=== PATIENT | male | born 1965 | race African-American/Black ===

== ENCOUNTER 2016-12-24 09:10 | Emergency (ER) | payer OTHER ==
[~2016-12-24] VITALS: Ht 180.3 cm; Wt 105.0 kg
[2016-12-24] MEDS ORDERED: ASPI81 PO (09:24)
[2016-12-24] MEDS ORDERED: AMLO2.5T PO (09:24)
[2016-12-24] MEDS ORDERED: LISI-660 PO (09:24)
[2016-12-24] MEDS ORDERED: ACETAMINOPHEN 500 MG TABLET PO ONE (12:30)
[2016-12-24] MEDS ORDERED: IBUPROFEN 800 MG TABLET PO ONE (12:30)
[2016-12-24 12:37] VITALS: BP 138/81
== END 2016-12-24 12:39 | disposition home or self-care (01) ==
LOC: EMS 09:14
DX: M54.32 Sciatica, left side (principal); I10 Essential (primary) hypertension; F10.10 Alcohol abuse, uncomplicated; Z79.82 Long term (current) use of aspirin; Z79.4 Long term (current) use of insulin; Z96.659 Presence of unspecified artificial knee joint
CPT/HCPCS: 99283